=== PATIENT | male | born 1980 | race American Indian/Alaskan Native ===

== ENCOUNTER 2020-05-31 23:24 | Emergency (ER) | payer SELFPAY ==
[2020-06-01 01:14] LABS: Basophils # (Auto) 0.1 K/mm3 (0.0-0.1); Basophils % (Auto) 1.2 % (0.0-1.8); Eosinophils # (Auto) 0.2 K/mm3 (0.0-0.4); Eosinophils % (Auto) 3.6 % (0.0-4.3); Hematocrit 39.4 % (35.5-45.6); Hemoglobin 13.8 gm/dl (11.8-15.2); Lymphocytes # (Auto) 0.9 K/mm3 (1.2-5.4); Lymphocytes % (Auto) 19.1 % (13.4-35.0); Mean Corpuscular HGB Conc 35 % (32-34); Mean Corpuscular Volume 98 fl (84-94); Monocytes # (Auto) 0.6 K/mm3 (0.0-0.8); Monocytes % (Auto) 11.5 % (0.0-7.3); Platelet Count 240 K/mm3 (140-440); Red Blood Count 4.04 M/mm3 (3.65-5.03); Red Cell Distribution Width 13.6 % (13.2-15.2)
[2020-06-01 01:33] LABS: BUN/Creatinine Ratio 10; Blood Urea Nitrogen 10 mg/dL (9-20); Calcium 9.1 mg/dL (8.4-10.2); Hemolysis Index 3
--- NOTE | 2020-06-01 02:14 | Emergency Department Report ---
ED Seizure HPI - General Chief Complaint: Seizure Stated Complaint: SEIZURE Time Seen by Provider: 06/01/20 02:13 Source: patient, EMS ( EMS documentation not available at time of chart dictation ), RN notes reviewed Mode of arrival: Stretcher Limitations: No Limitations - History of Present Illness Initial Comments: The patient was evaluated in the emergency department for symptoms described in the history of present illness. He/she was evaluated in the context of the global COVID-19 pandemic, which necessitated consideration that the patient migh t be at risk for infection with the virus that causes COVID-19. Institutional protocols and algorithms that pertain to the evaluation of patients at risk for COVID-19 are in a state of rapid change based on information released by regulatory bodies including the CDC and federal and state organizations. These policies and algorithms were followed during the patient's care in the emergency department. Please note that these policies, procedures and recommendations changed on a rapid basis. Primary CARE doctor: [facility]/ " someone in [place], I cant remember their name." The patient is a 39-year-old gentleman. He is not known to myself previously. He states he has a history of seizure. He reports that he takes valproic acid, 500 mg twice daily, and Keppra, 1000 mg twice daily. He presents to the ER today via EMS, after having had a seizure at home. Patient reports being at home in bed with his fiance, in his usual state of health, when he apparently had a generalized convulsive event. Prior to the event, the patient states he was feeling like his normal self. Patient currently denies headache, neck pain, chest pain, abdominal pain, shortness of breath, urinary symptoms, loss of taste and smell, loss of vision, neck pain, extremity weakness/numbness. He fits the right distal lateral aspect of his tongue, and this is the only thing that is hurting him. Prior to this evening, his last convulsive events was about a week and a half ago, and he believes that he has had 3-4 seizures since the beginning of the year. He has been intermittently compliant with his Depakote and Keppra. He smokes tobacco, but denies recreational drug use. He reports that he feels like he is back to his baseline at this time, and he is able to get someone to "come by and get me picked up if I need to." He is also asking to drink at this time. MD Complaint: seizure -: Sudden Description of Episode: loss of consciousness, tonic-clonic movement -: second(s) Witnessed:: Yes Trauma: No Seizure History: known seizure disorder, history of non-compliance Place: home Possible Precipitating Event: other (Medication noncompliance) Associated Symptoms: denies other symptoms (Superficial tongue injury) - Related Data Previous Rx's Medication Instructions Recorded Last Taken Type Depakote ER 500 mg PO BID #60 tab 06/01/20 Unknown Rx levETIRAcetam [Keppra TAB] 1 tab PO BID #60 tab 06/01/20 Unknown Rx Allergies Allergy/AdvReac Type Severity Reaction Status Date / Time Penicillins Allergy Hives Verified 06/01/20 00:37 ED Review of Systems ROS: Stated complaint: SEIZURE Other details as noted in HPI Constitutional: denies: fever Eyes: denies: eye discharge ENT: other (Tongue bite). denies: epistaxis Respiratory: denies: cough Cardiovascular: denies: chest pain Gastrointestinal: denies: abdominal pain, nausea, vomiting, hematemesis, melena, hematochezia Genitourinary: denies: dysuria Musculoskeletal: denies: back pain Neurological: denies: weakness Hematological/Lymphatic: denies: easy bleeding ED Past Medical Hx - Past Medical History Previous Medical History?: Yes Hx Seizures: Yes - Surgical History Past Surgical History?: No - Social History Smoking Status: Current Every Day Smoker Substance Use Type: None - Medications Home Medications: Home Medications Medication Instructions Recorded Confirmed Last Taken Type Depakote ER 500 mg PO BID #60 tab 06/01/20 Unknown Rx levETIRAcetam [Keppra TAB] 1 tab PO BID #60 tab 06/01/20 Unknown Rx ED Physical Exam - General Limitations: No Limitations General appearance: alert, in no apparent distress - Head Head exam: Present: atraumatic, normocephalic - Eye Eye exam: Present: normal appearance, PERRL, EOMI, other (Visual acuity intact to finger counting, color perception, reading at a close distance). Absent: nystagmus - ENT ENT exam: Present: normal exam, normal orophraynx, mucous membranes moist, normal external ear exam, other (Superficial bite wounds noted to the lateral distal aspect of the right tongue. There is no stridor or dysphonia.) - Neck Neck exam: Present: normal inspection, full ROM. Absent: tenderness, meningismus - Respiratory Respiratory exam: Present: normal lung sounds bilaterally. Absent: respiratory distress, wheezes, rales, rhonchi, stridor, decreased breath sounds - Cardiovascular Cardiovascular Exam: Present: regular rate, normal rhythm, normal heart sounds. Absent: bradycardia, tachycardia, irregular rhythm, systolic murmur, diastolic murmur, rubs, gallop - GI/Abdominal GI/Abdominal exam: Present: soft. Absent: distended, tenderness, guarding, rebound, rigid, pulsatile mass - Rectal Rectal exam: Present: deferred - Extremities Exam Extremities exam: Present: normal inspection, full ROM, other (2+ pulses noted in the bilateral upper and lower extremities. There is no palpable cord. negative Homans sign. Muscular compartments are soft. The pelvis is stable.). Absent: pedal edema, calf tenderness - Back Exam Back exam: Present: normal inspection, full ROM. Absent: tenderness, CVA tende rness (R), CVA tenderness (L), paraspinal tenderness, vertebral tenderness - Neurological Exam Neurological exam: Present: alert, oriented X3, other (No facial droop. Tongue midline. Extraocular movements intact bilaterally. Facial sensation intact to light touch in V1, V2, V3 distribution bilaterally. 5 and a 5 strength in 4 extremities. Sensation intact to light touch in 4 extremities.). Absent: motor sensory deficit - Psychiatric Psychiatric exam: Present: normal affect, normal mood - Skin Skin exam: Present: warm, dry, intact, normal color. Absent: rash ED Course Vital Signs 06/01/20 06/01/20 06/01/20 00:19 02:18 02:20 Temperature 98.1 F Pulse Rate 72 59 L Respiratory 16 16 18 Rate Blood Pressure 130/78 O2 Sat by Pulse 98 100 Oximetry 06/01/20 06/01/20 06/01/20 02:30 02:46 03:00 Temperature Pulse Rate 82 60 62 Respiratory 16 16 15 Rate Blood Pressure 142/109 142/109 142/109 O2 Sat by Pulse 99 98 100 Oximetry 06/01/20 03:16 Temperature Pulse Rate 66 Respiratory 15 Rate Blood Pressure 113/56 O2 Sat by Pulse 99 Oximetry - Reevaluation(s) Reevaluation #1: 06/01/20 02:27 Differential diagnosis, including but not limited to: Seizure, subtherapeutic AED level, medication refill, medication noncompliance, superficial bite wounds Assessment and plan: 39-year-old gentleman, who is clinically sober, with a GCS of 15, with complaint of breakthrough seizure, likely secondary to medication n oncompliance, without cough, urinary symptoms, or other acute complaints. This is most likely a breakthrough seizure, likely secondary to medication noncompliance and subtherapeutic AED level. EKG pending. Do not see indication for chest x-ray or noncontrast CT scan of the brain, given normal neurologic examination, clinical sobriety, lack of trauma, and lack of respiratory/urinary symptoms. We will obtain EKG, load patient with Depakote, load patient with Keppra. Patient is already not driving or operating motor vehicles, and he is encouraged to not drive or operate motor vehicles for the next 6 months. Tongue bite superficial, this will heal on its own with supportive care, no further intervention required 06/01/20 02:28 Reevaluation #2: 06/01/20 03:06 Patient has been in this ER for approximately 4 hours without clinical decompensation, or recurrent convulsive event/seizure. He is loaded with Keppra and valproic acid, and is resting comfortably, asking to drink, and he is not in any acute distress at this time. His EKG does not demonstrate any significant rhythmic abnormalities, has nonspecific early repolarization without chest pain, can be followed up as an outpatient. Reevaluation #3: 06/01/20 04:08 Resting comfortably. No acute distress. No further convulsive events noted. We will discharge with prescription refills, and instructions to follow-up as an outpatient. ED Medical Decision Making - Lab Data Result diagrams: 06/01/20 00:52 06/01/20 00:52 Vital Signs 06/01/20 06/01/20 00:19 02:20 Temperature 98.1 F Pulse Rate 72 Respiratory 16 18 Rate Blood Pressure 130/78 O2 Sat by Pulse 98 Oximetry Lab Results 06/01/20 06/01/20 06/01/20 Range/Units 00:52 00:52 00:52 WBC 5.0 (4.5-11.0) K/mm3 RBC 4.04 (3.65-5.03) M/mm3 Hgb 13.8 (11.8-15.2) gm/dl Hct 39.4 (35.5-45.6) % MCV 98 H (84-94) fl MCH 34 H (28-32) pg MCHC 35 H (32-34) % RDW 13.6 (13.2-15.2) % Plt Count 240 (140-440) K/mm3 Lymph % (Auto) 19.1 (13.4-35.0) % Ware % (Auto) 11.5 H (0.0-7.3) % Eos % (Auto) 3.6 (0.0-4.3) % Baso % (Auto) 1.2 (0.0-1.8) % Lymph # (Auto) 0.9 L (1.2-5.4) K/mm3 Ware # (Auto) 0.6 (0.0-0.8) K/mm3 Eos # (Auto) 0.2 (0.0-0.4) K/mm3 Baso # (Auto) 0.1 (0.0-0.1) K/mm3 Seg Neutrophils % 64.6 (40.0-70.0) % Seg Neutrophils # 3.2 (1.8-7.7) K/mm3 Sodium 141 (137-145) mmol/L Potassium 4.5 (3.6-5.0) mmol/L Chloride 103.6 (98-107) mmol/L Carbon Dioxide 30 (22-30) mmol/L Anion Gap 12 mmol/L BUN 10 (9-20) mg/dL Creatinine 1.0 (0.8-1.3) mg/dL Estimated GFR > 60 ml/min BUN/Creatinine Ratio 10 % Glucose 77 (75-100) mg/dL Calcium 9.1 (8.4-10.2) mg/dL Magnesium (1.7-2.3) mg/dL Total Creatine Kinase (55-170) units/L Valproic Acid 18.2 L (50-100) ug/mL 06/01/20 Range/Units 00:52 WBC (4.5-11.0) K/mm3 RBC (3.65-5.03) M/mm3 Hgb (11.8-15.2) gm/dl Hct (35.5-45.6) % MCV (84-94) fl MCH (28-32) pg MCHC (32-34) % RDW (13.2-15.2) % Plt Count (140-440) K/mm3 Lymph % (Auto) (13.4-35.0) % Ware % (Auto) (0.0-7.3) % Eos % (Auto) (0.0-4.3) % Baso % (Auto) (0.0-1.8) % Lymph # (Auto) (1.2-5.4) K/mm3 Ware # (Auto) (0.0-0.8) K/mm3 Eos # (Auto) (0.0-0.4) K/mm3 Baso # (Auto) (0.0-0.1) K/mm3 Seg Neutrophils % (40.0-70.0) % Seg Neutrophils # (1.8-7.7) K/mm3 Sodium (137-145) mmol/L Potassium (3.6-5.0) mmol/L Chloride (98-107) mmol/L Carbon Dioxide (22-30) mmol/L Anion Gap mmol/L BUN (9-20) mg/dL Creatinine (0.8-1.3) mg/dL Estimated GFR ml/min BUN/Creatinine Ratio % Glucose (75-100) mg/dL Calcium (8.4-10.2) mg/dL Magnesium 1.80 (1.7-2.3) mg/dL Total Creatine Kinase 229 H (55-170) units/L Valproic Acid (50-100) ug/mL - EKG Data -: EKG Interpreted by [place] EKG shows normal: sinus rhythm Rate: normal - EKG Data When compared to previous EKG there are: previous EKG unavailable 06/01/20 03:05 There is no prior EKG available for comparison. Time of interpretation, 3: 0 1 AM, June 01, 2020 Sinus rhythm, 60 bpm. Normal axis, normal intervals, high left ventricular voltage. Early repolarization, denies chest pain, nonspecific ST abnormality. Abnormal EKG, not a STEMI. Critical care attestation.: If time is entered above; I have spent that time in minutes in the direct care of this critically ill patient, excluding procedure time. ED Disposition Clinical Impression: History of seizure, Medication refill, Tongue biting, On valproic acid therapy Disposition: DC-01 TO HOME OR SELFCARE Is pt being admited?: No Does the pt Need Aspirin: No Condition: Good Instructions: Seizure, Adult, [id number] Additional Instructions: Please make certain to take your seizure medication as prescribed. Noncompliance with seizure medications may lead to breakthrough seizures, which may cause disability, paralysis, , loss of quality of life. Rest, avoid heavy lifting and strenuous physical activity, participate in physic al activities as tolerated. Take the seizure medication as prescribed. Follow- up with a primary care doctor or neurologist within the next week. Do not drive or operate motor vehicles for the next 6 months, or until cleared to do so by a primary care doctor or neurologist. Please return to the emergency room right away with new pain, worsened pain, migration of pain, projectile vomiting, change in mental status, confusion, inability to tolerate liquid feeds, new, worsened or different symptoms not present on the initial emergency room evaluation. Bite wounds to tongue may be treated conservatively, patient may take [id number] acetaminophen, ibuprofen as needed for pain, avoid foods that are excessively hot or excessively cold Prescriptions: Depakote ER 500 mg PO BID #60 tab levETIRAcetam [Keppra TAB] 1 tab PO BID #60 tab Referrals: CASEY GILMORE MD [Staff Physician] - 7-10 days VARGAS ABERNATHY MD [Referring] - 7-10 days
[2020-06-01] MEDS ORDERED: levETIRAcetam 1000 MG/NS 0.75% 1,000 MG/100 ML BAG IV ONE ×2 (02:21→03:00)
[2020-06-01] MEDS ORDERED: VALPROATE SODIUM 1,000 MG in SODIUM CHLORIDE 0.9% 100 ML IV ONE (02:21)
[2020-06-01] MEDS ORDERED: levETIRAcetam 1,000 MG in DEXTROSE 5% IN WATER 100 ML IV ONE (02:21)
[2020-06-01 05:38] VITALS: BP 121/66
== END 2020-06-01 05:38 | disposition home or self-care (01) ==
LOC: ED 23:24
DX: G40.909 Epilepsy, unspecified, not intractable, without status epilepticus (principal); K13.1 Cheek and lip biting; K14.8 Other diseases of tongue; Z79.899 Other long term (current) drug therapy; F17.200 Nicotine dependence, unspecified, uncomplicated
CPT/HCPCS: 36415; 80048; 80164; 82550; 83735; 85025; 93005; 96365; 96367; 99284; J1953; 96368